=== PATIENT | male | born 1960 | race Caucasian/White ===

== ENCOUNTER 2022-07-28 07:02 | Day surgery (SDC) | payer OTHER ==
[~2022-07-28] VITALS: Ht 165.1 cm; Wt 108.9 kg
[~2022-07-28 07:02] MED LIST: ACET-8905 PO; ASPI81EC97 PO; ATOR20TA PO; CARV12.5 PO; ENAL20TA46 PO; GABA300C PO; GLIP10TE3 PO; ISOS30TE PO; METF-1274 PO; NITR0.4T1 SL; PRAS10TA2 PO
[2022-07-28] MEDS ORDERED: LIDOCAINE 2% 100 MG/5 ML UJET TP ONE (07:19)
[2022-07-28] MEDS ORDERED: fentaNYL citrate 0.05 MG/ML VIAL ONE (07:19)
[2022-07-28] MEDS ORDERED: fentaNYL citrate 0.05 MG/ML VIAL IVP ONE (08:10)
== END 2022-07-28 08:40 | disposition home or self-care (01) ==
LOC: MDS 07:02 → MMU 07:02 → MDS 08:40
PROVIDERS: ATTEND Internal Medicine Gastroenterology
DX: K62.5 Hemorrhage of anus and rectum (principal); K63.5 Polyp of colon; K57.30 Diverticulosis of large intestine without perforation or abscess without bleeding; K64.9 Unspecified hemorrhoids; K59.00 Constipation, unspecified; E11.9 Type 2 diabetes mellitus without complications; I10 Essential (primary) hypertension; E78.5 Hyperlipidemia, unspecified; G47.00 Insomnia, unspecified; F41.9 Anxiety disorder, unspecified; F32.A Depression, unspecified; J45.909 Unspecified asthma, uncomplicated; E11.40 Type 2 diabetes mellitus with diabetic neuropathy, unspecified; E66.9 Obesity, unspecified; Z79.82 Long term (current) use of aspirin; Z79.84 Long term (current) use of oral hypoglycemic drugs; Z79.01 Long term (current) use of anticoagulants; Z68.39 Body mass index [BMI] 39.0-39.9, adult
CPT/HCPCS: 45385; J3010